=== PATIENT | female | born 1955 | race Caucasian/White ===

== ENCOUNTER → 2020-02-08 10:41 | Outpatient (REF) | payer MEDICARE, SELFPAY | LOC: ANHLAB 10:41 | PROVIDERS: PCP Internal Medicine; Visit Provider Nurse Practitioner | DX: D22.39 Melanocytic nevi of other parts of face (principal) | CPT/HCPCS: 88305 ==

== ENCOUNTER → 2021-04-05 12:32 | Outpatient (CLI) | payer MEDICARE, SELFPAY ==
--- NOTE | ~2021-04-05 | DEXA_ITS ---
Bone Density Report Name: Lelia Kc Age: 66 Sex: Female Ethnicity: White Date of : 1955 Indication: osteopenia; height loss; history of glucocorticoids; postmenopausal Referring Provider: SHEREE PICKARD Study: Bone densitometry was performed. Exam Date: April 05, 2021 Accession number: [id number] Bone Density: Region BMD T-score Z-score Classification AP Spine (L1-L4) 0.850 -1.8 0.1 Osteopenia Femoral Neck (Left) 0.569 -2.5 -0.9 Osteoporosis Total Hip (Left) 0.666 -2.3 -0.9 Osteopenia Femoral Neck (Right) 0.685 -1.5 0.2 Osteopenia Total Hip (Right) 0.737 -1.7 -0.3 Osteopenia Total Hip Mean 0.702 -2.0 -0.6 Osteopenia World Health Organization criteria for BMD impression classify patients as: Normal (T-score at or above -1.0), Osteopenia (T-score between -1.0 and -2.5), or Osteoporosis (T-score at or below -2.5). 10-year Fracture Risk: FRAX not reported because: Some T-score for Spine Total or Hip Total or Femoral Neck at or below -2.5 Previous Exams: Region Exam Age BMD T-score BMD Change BMD Change Date g/cm2 vs Baseline vs Previous AP Spine(L1-L4) 04/05/2021 66 0.850 -1.8 -0.009 -0.037* 12/19/2010 55 0.887 -1.5 0.028* -0.013 01/15/2008 52 0.900 -1.3 0.040* 0.040* 08/21/2005 50 0.859 -1.7 Total Hip(Left) 04/05/2021 66 0.666 -2.3 -0.043* -0.041* 12/19/2010 55 0.707 -1.9 -0.002 -0.008 01/15/2008 52 0.715 -1.9 0.007 0.007 08/21/2005 50 0.709 -1.9 Total Hip(Right) 04/05/2021 66 0.737 -1.7 -0.025 -0.042* 12/19/2010 55 0.779 -1.3 0.018 0.002 01/15/2008 52 0.777 -1.4 0.016 0.016 08/21/2005 50 0.761 -1.5 *Denotes significance at 95% confidence level, LSC for AP Spine = 0.022 g/cm2, LSC for Total Hip = 0.027 g/cm2 Clinical Information Provided by Patient: Has taken Glucocorticoids Has used the following medications: Vitamin D, Calcium Patient maximum height was 65 Menopause Age: 48 No regular weight bearing exercise Drinks caffeinated beverages Onset of menses at age 11 Number of children 0 Impression: The patient has osteoporosis, based on the Left Femoral Neck T-score. The patient has risk factors, including: history of glucocorticoid therapy. The BMD for the AP Spine(L1-L4) decreased, changing by -0.037 since the last DXA
== END ==
PROVIDERS: PCP Internal Medicine; Visit Provider Internal Medicine
DX: N95.9 Unspecified menopausal and perimenopausal disorder (principal); M85.88 Other specified disorders of bone density and structure, other site; M81.0 Age-related osteoporosis without current pathological fracture; M85.852 Other specified disorders of bone density and structure, left thigh; M85.851 Other specified disorders of bone density and structure, right thigh
CPT/HCPCS: 77080

== ENCOUNTER → 2021-04-26 11:02 | Outpatient (REF) | payer MEDICARE, SELFPAY | LOC: ANHLAB 11:02 | PROVIDERS: PCP Internal Medicine; Visit Provider Nurse Practitioner | DX: C44.311 Basal cell carcinoma of skin of nose (principal) | CPT/HCPCS: 88305 ==

== ENCOUNTER → 2021-06-08 14:38 | Outpatient (CLI) | payer MEDICARE, SELFPAY ==
--- NOTE | ~2021-06-08 | MM_ITS ---
EXAMINATION: MM screening guero BI w janine HISTORY: Screening TECHNIQUE: Craniocaudal and mediolateral oblique 3-D tomosynthesis images were obtained and synthetic 2-D images were generated. CAD analysis was submitted and interpreted. COMPARISON: Comparison to multiple prior studies sequentially, with oldest reviewed study dated 12/02. BREAST PARENCHYMAL COMPOSITION: There are scattered areas of fibroglandular density. FINDINGS: There is no evidence of suspicious mass, calcification, or architectural distortion to sugg est malignancy in either breast. There has been no suspicious interval change. IMPRESSION: 1. No mammographic evidence of malignancy. 2. Recommend routine screening mammography in one year. BI-RADS Category 1: Negative Reviewed, dictated and finalized at location A.
== END ==
PROVIDERS: PCP Internal Medicine; Visit Provider Internal Medicine
DX: Z12.31 Encounter for screening mammogram for malignant neoplasm of breast (principal)
CPT/HCPCS: 77063; 77067

== ENCOUNTER → 2021-07-09 10:31 | Outpatient (REF) | payer MEDICARE, SELFPAY | LOC: ANHLAB 10:31 | PROVIDERS: PCP Internal Medicine; Visit Provider Nurse Practitioner | DX: C44.311 Basal cell carcinoma of skin of nose (principal) | CPT/HCPCS: 88305; 88331 ==

== ENCOUNTER → 2022-07-20 08:59 | Outpatient (CLI) | payer MEDICARE, SELFPAY ==
--- NOTE | ~2022-07-20 | MR_ITS ---
EXAMINATION: MR knee RT wo con DATE: 07/20/2022 10:10 INDICATION: Intermittent generalized right knee pain and popping. TECHNIQUE: Magnetic resonance imaging (MRI) of the right knee was performed without intravenous contr ast. Sequences included axial PD-weighted FS FSE, coronal PD-weighted FSE and PD-weighted FS FSE, sag ittal PD-weighted FSE, and sagittal T2-weighted FS FSE. COMPARISON: None. FINDINGS: Medial compartment: Medial meniscus is normal. There is shallow partial-thickness cartilage loss of femoral condyle and t ibial condyle. There are tiny osteophytes. Lateral compartment: Lateral meniscus is normal. Lateral compartment cartilage is normal. Patellofemoral compartment: There is deep partial thickness cartilage loss of patellar median ridge and medial facet with mild guevara bchondral edema-like marrow signal intensity. There is shallow partial-thickness cartilage loss of tr ochlea. Osteophytes are noted. Ligaments and tendons: Anterior and posterior cruciate ligaments are normal. There are changes of prior sprains of medial co llateral ligament and fibular collateral ligament characterized by thickening and increased signal in tensity proximally. There is mild patellar tendinopathy. Fluid: There is a small knee joint effusion. There is mild prepatellar and superficial infrapatellar bursiti s. IMPRESSION: 1. Moderate chondrosis of patellofemoral compartment and mild chondrosis of medial compartment. 2. Small knee joint effusion. Reviewed, dictated and finalized at location A. WARDEN IMPRESSION: 1. Moderate chondrosis of patellofemoral compartment and mild chondrosis of med ial compartment. 2. Small knee joint effusion.
== END ==
PROVIDERS: PCP Internal Medicine; Visit Provider Internal Medicine
DX: M25.461 Effusion, right knee (principal)
CPT/HCPCS: 73721

== ENCOUNTER 2022-09-12 02:04 | Day surgery (SDC) | payer MEDICARE, SELFPAY ==
[2022-09-03 12:15] VITALS: BMI 27.5
[2022-09-12 00:56] VITALS: BP 119/66; PULSE 72; RESP 20; O2SAT 98
[2022-09-12 08:24] VITALS: BP 126/68; PULSE 92; RESP 18; TEMP 36.7; O2SAT 98; BMI 28.8
[2022-09-12] MEDS: LACTATED RINGERS 1,000 ML 150 ML IV CONT (08:34)
--- NOTE | 2022-09-12 08:35 | PM.HPGS ---
History of Present Illness History of Present Illness Consent: Risks, benefits, and alternatives have been discussed and questions answered. Patient agrees to proceed with procedure. Chief complaint: Hx Colon Polyps Narrative: Lelia Kc is a 67 year old female Presents for screening colonoscopy. Patient does have a prior history of colon polyps. Most recent colonoscopy 2015. Patient reports that her current weight appetite and bowel movements are normal. Patient denies abdominal pain. She has had no bleeding. Family history is noncontributory. Review of Systems Review of Systems: Review of systems noncontributory. [facility] Past Medical History Medical History (Updated 07/12/22 @ 11:13 by Cristina Brown MA) Anxiety with depression Basal cell carcinoma of chest Benign essential hypertension BMI 28.0-28.9,adult BMI 30.0-30.9,adult Colon cancer screening Elevated glucose Elevated homocysteine Encounter for routine adult health examination without abnormal findings Hearing loss History of basal cell carcinoma Hx of colonic polyps Hyperlipidemia Mid back pain on right side On [facility] drug therapy Open comedone Post menopausal problems Right knee pain Vitamin D deficiency Family History Family History (Reviewed 11/27/21 @ 09:22 by Diane Marcano [facility]) Father Diabetes mellitus Family history of cardiovascular disease Family history of diabetes mellitus in first degree relative Family history of heart disease in male family member before age 55 Social History Social History (Reviewed 11/27/21 @ 09:22 by Diane Marcano [facility]) Smoking status: Never smoker Second hand tobacco smoke exposure: No Alcohol intake: current Substance use: never Substance use type: does not use Living arrangements: with family Spiritual care concerns: No Meds Home Medications and Allergies Home Medications Medication Instructions Recorded Confirmed Type ascorbic acid (vitamin C) 500 mg 500 mg PO DAILY #1 cap 05/23/20 09/03/22 Rx capsule hydrochlorothiazide 12.5 mg tablet 12.5 mg PO DAILY PRN edema #30 tabs 11/27/21 09/03/22 Rx alprazolam 0.5 mg tablet 0.5 mg PO TID PRN anxiety #30 tabs 08/09/22 09/12/22 Rx atorvastatin 20 mg tablet 20 mg PO HS 09/03/22 09/03/22 History calcium carbonate 600 mg-vitamin 1 tablet PO DAILY 09/03/22 09/03/22 History D3 20 mcg (800 unit) chewable tablet (Caltrate 600 plus D) candesartan 16 0.5 tablet PO DAILY 09/03/22 09/03/22 History mg-hydrochlorothiazide 12.5 mg tablet cholecalciferol (vitamin D3) 25 25 mcg PO DAILY 09/03/22 09/03/22 History mcg (1,000 unit) capsule (Vitamin D3) duloxetine 60 mg capsule,delayed 60 mg PO QPM 09/03/22 09/03/22 History release vitamin K2 100 mcg capsule 100 mcg PO DAILY 09/03/22 09/03/22 History Allergies Allergy/AdvReac Type Severity Reaction Status Date / Time ibuprofen Allergy Severe Hives Verified 09/12/22 08:23 shellfish derived Allergy Severe Hives Verified 09/12/22 08:23 iodine Allergy Intermediate Hives Verified 09/12/22 08:23 LIYA Inhibitors Allergy Unknown Unknown Verified 09/12/22 08:23 Penicillins Allergy Unknown Unknown Verified 09/12/22 08:23 SHELLFISH Allergy Severe Hives Uncoded 09/12/22 08:23 Vital Signs Vital Signs - 24 hr 09/12/22 08:24 Temperature 98.1 F Pulse Rate 92 Respiratory Rate 18 Blood Pressure 126/68 Pulse Oximetry 98 Oxygen Delivery Room Air Exam Narrative: Physical exam reveals patient to be alert. Vital signs stable. HEENT exam is unremarkable. Patient is anicteric. Lungs are clear to auscultation and percussion. Heart is without murmur or extra sounds. Abdomen bowel sounds present soft nontender with no organomegaly. Digital external rectal exam is normal. Assessment and Plan Assessment and plan (1) Hx of colonic polyps: Code(s): Z86.010 - Personal history of colonic polyps Status: Acute Assessment and Plan: Clay
--- NOTE | 2022-09-12 08:46 | WPDANESEPPF ---
Anes - Initial Pre Proc Eval Procedure: Operation Date: 09/12/22 09:30 Proposed Procedures p Screening Colonoscopy - Alexi Abdi MD Date/Time: 09/12/22 08:46 Surgeon: Alexi Abdi MD Pre Op Diagnosis: Hx Colon Polyps Patient Data Age: 67 Gender: F Height: 1.65 m Weight: 78.4 kg Last Vital Signs Temp 98.1 F 09/12/22 08:24 Pulse 92 09/12/22 08:24 Resp 18 09/12/22 08:24 BP 126/68 09/12/22 08:24 Pulse Ox 98 09/12/22 08:24 O2 Del Method Room Air 09/12/22 08:24 Allergies Allergy/AdvReac Type Severity Reaction Status Date / Time ibuprofen Allergy Severe Hives Verified 09/12/22 08:23 shellfish derived Allergy Severe Hives Verified 09/12/22 08:23 iodine Allergy Intermediate Hives Verified 09/12/22 08:23 LIYA Inhibitors Allergy Unknown Unknown Verified 09/12/22 08:23 Penicillins Allergy Unknown Unknown Verified 09/12/22 08:23 SHELLFISH Allergy Severe Hives Uncoded 09/12/22 08:23 Home Medications Medication Instructions Recorded Confirmed Type ascorbic acid (vitamin C) 500 mg 500 mg PO DAILY #1 cap 05/23/20 09/03/22 Rx capsule hydrochlorothiazide 12.5 mg tablet 12.5 mg PO DAILY PRN edema #30 tabs 11/27/21 09/03/22 Rx alprazolam 0.5 mg tablet 0.5 mg PO TID PRN anxiety #30 tabs 08/09/22 09/12/22 Rx atorvastatin 20 mg tablet 20 mg PO HS 09/03/22 09/03/22 History calcium carbonate 600 mg-vitamin 1 tablet PO DAILY 09/03/22 09/03/22 History D3 20 mcg (800 unit) chewable tablet (Caltrate 600 plus D) candesartan 16 0.5 tablet PO DAILY 09/03/22 09/03/22 History mg-hydrochlorothiazide 12.5 mg tablet cholecalciferol (vitamin D3) 25 25 mcg PO DAILY 09/03/22 09/03/22 History mcg (1,000 unit) capsule (Vitamin D3) duloxetine 60 mg capsule,delayed 60 mg PO QPM 09/03/22 09/03/22 History release vitamin K2 100 mcg capsule 100 mcg PO DAILY 09/03/22 09/03/22 History Patient hx anesthesia problems: none Family hx anesthesia problems: none Results Review: All pre-operative results and documents have been reviewed as part of the pre-operative evaluation. COUNTS INCLUDE 234 BEDS AT THE [facility] Past Medical History Medical History (Updated 07/12/22 @ 11:13 by Cristina Brown MA) Anxiety with depression Basal cell carcinoma of chest Benign essential hypertension BMI 28.0-28.9,adult BMI 30.0-30.9,adult Colon cancer screening Elevated glucose Elevated homocysteine Encounter for routine adult health examination without abnormal findings Hearing loss History of basal cell carcinoma Hx of colonic polyps Hyperlipidemia Mid back pain on right side On remote computer terminal operator drug therapy Open comedone Post menopausal problems Right knee pain Vitamin D deficiency Family History Family History Father Diabetes mellitus Family history of cardiovascular disease Family history of diabetes mellitus in first degree relative Family history of heart disease in male family member before age 55 Social History Social History Smoking status: Never smoker Second hand tobacco smoke exposure: No Alcohol intake: current Substance use: never Substance use type: does not use Living arrangements: with family Spiritual care concerns: No Anes - Eval Final PreProcedure Day of Procedure 09/12/22 08:46 Patient weight: overweight Heart: regular rate and rhythm Lungs: clear to auscultation Airway: Mallampati scale class II Neurological: alert and oriented Last oral intake: >/= 8 hours ASA classification: II Emergent: no Anesthetic plan: proceed Anesthesia type and monitoring: general GIVS and standard monitoring Results Review: All pre-operative results and documents have been reviewed as part of the pre-operative evaluation. Informed Consent: The patient's anesthetic plan and its attendant risks and benefits were discussed with the patient/family/POA. Questions were solicited and answers pro
[2022-09-12 09:36] VITALS: BP 104/57; PULSE 77; RESP 18; O2SAT 96
[2022-09-12 09:46] VITALS: BP 106/59; PULSE 78; RESP 19; O2SAT 98
== END 2022-09-12 10:06 | disposition home or self-care (01) ==
PROVIDERS: PCP Internal Medicine; Visit Provider Internal Medicine Gastroenterology
PROC: 0DJD8ZZ Inspection of Lower Intestinal Tract, Via Natural or Artificial Opening Endoscopic (ICD-10-PCS; CPT 45378; principal; 2022-09-12 09:30)
DX: Z12.11 Encounter for screening for malignant neoplasm of colon (principal); K63.5 Polyp of colon; K62.1 Rectal polyp; K64.8 Other hemorrhoids; F41.8 Other specified anxiety disorders; I10 Essential (primary) hypertension; E78.5 Hyperlipidemia, unspecified; E55.9 Vitamin D deficiency, unspecified
CPT/HCPCS: 45385; 88305; J2704; J7120

== ENCOUNTER → 2022-10-03 13:45 | Outpatient (CLI) | payer MEDICARE, SELFPAY ==
--- NOTE | ~2022-10-03 | MM_ITS ---
EXAMINATION: MM screening guero BI w janine HISTORY: Screening mammogram TECHNIQUE: Craniocaudal and mediolateral oblique 3-D tomosynthesis images were obtained and synthetic 2-D images were generated. CAD analysis was submitted and interpreted. COMPARISON: 06/08/2021, 03/03/2019, 06/13/2017 bilateral screening mammogram examinations BREAST PARENCHYMAL COMPOSITION: There are scattered areas of fibroglandular density. FINDINGS: Stable fibroglandular asymmetry. There is no evidence of suspicious mass, calcification, or architectural distortion to suggest malignancy in either breast. There has been no suspicious interv al change. IMPRESSION: 1. No mammographic evidence of malignancy. 2. Recommend routine screening mammography in one year. BI-RADS Category 2: Benign finding(s). Reviewed, dictated and finalized at location A. N [employer] ADVISOR LEAD
== END ==
PROVIDERS: PCP Internal Medicine; Visit Provider Internal Medicine
DX: Z12.31 Encounter for screening mammogram for malignant neoplasm of breast (principal)
CPT/HCPCS: 77063; 77067

== ENCOUNTER 2024-04-12 11:30 | Outpatient (CLI) | payer MEDICARE, SELFPAY ==
--- NOTE | ~2024-04-12 | MM_ITS ---
EXAMINATION: MM screening guero BI w janine HISTORY: Screening TECHNIQUE: Craniocaudal and mediolateral oblique 3-D tomosynthesis images were obtained and synthetic 2-D images were generated. CAD analysis was submitted and interpreted. COMPARISON: Comparison to multiple prior studies sequentially, with oldest reviewed study dated 07/26. BREAST PARENCHYMAL COMPOSITION: Not dense: There are scattered areas of fibroglandular density. FINDINGS: There is no evidence of suspicious mass, calcification, or architectural distortion to sugg est malignancy in either breast. There has been no suspicious interval change. IMPRESSION: 1. No mammographic evidence of malignancy. 2. Recommend routine screening mammography in one year. BI-RADS Category 1: Negative Reviewed, dictated and finalized at location B.
== END 2024-04-12 11:31 ==
LOC: MICIMG 11:31
PROVIDERS: PCP Internal Medicine; Visit Provider Internal Medicine
DX: Z12.31 Encounter for screening mammogram for malignant neoplasm of breast (principal)
CPT/HCPCS: 77063; 77067

== ENCOUNTER 2025-04-14 10:30 | Outpatient (CLI) | payer MEDICARE, SELFPAY ==
--- NOTE | ~2025-04-14 | MM_ITS ---
EXAMINATION: MM screening [facility] BI w janine HISTORY: Screening mammogram TECHNIQUE: Craniocaudal and mediolateral oblique 3-D tomosynthesis images were obtained and synthetic 2-D images were generated. CAD analysis was submitted and interpreted. COMPARISON: 04/12/2024, 10/03/2022, 06/08/2021 BREAST PARENCHYMAL COMPOSITION:Not Dense. There are scattered areas of fibroglandular density. FINDINGS: No suspicious mass, calcification, or architectural distortion are identified in either breast to suggest malignancy. There has been no suspicious interval change. IMPRESSION: No mammographic evidence of malignancy. Recommend routine screening mammography in one year. BI-RADS Category 1: Negative Reviewed, dictated and finalized at location .
== END 2025-04-14 10:31 | disposition home or self-care (01) ==
PROVIDERS: PCP Internal Medicine; Visit Provider Internal Medicine
DX: Z12.31 Encounter for screening mammogram for malignant neoplasm of breast (principal)
CPT/HCPCS: 77063; 77067